=== PATIENT | female | born 2000 | race Caucasian/White ===

== ENCOUNTER 2020-12-14 21:17 | Emergency (ER) | payer OTHER ==
[~2020-12-14] VITALS: Ht 167.6 cm; Wt 96.6 kg
[2020-12-14 21:19] VITALS: BP 132/76
--- NOTE | 2020-12-14 21:19 | NUR ---
TO BED AMBULATORY
[2020-12-14 22:08] LABS: APPEARANCE,URINE SL CLOUDY (CLEAR); BILIRUBIN,URINE NEGATIVE (NEGATIVE); BLOOD, URINE NEGATIVE (NEGATIVE); COLOR,URINE YELLOW (YELLOW); LEUKOCYTE ESTERASE ,URINE 2+ (NEGATIVE); NITRITE, URINE NEGATIVE (NEGATIVE); UGLUCOSE NEGATIVE (NEGATIVE)
[2020-12-14 22:18] LABS: RBC,URINE NONE SEEN /HPF (0-5)
[2020-12-14 22:21] LABS: TRICHOMONAS,URINE None Seen /HPF (None Seen); YEAST,URINE None Seen /HPF (None Seen)
--- NOTE | 2020-12-14 22:32 | NUR ---
Dr. Nation examining patient.
[2020-12-14] MEDS ORDERED: IBUP-2213 PO (22:48)
[2020-12-14] MEDS ORDERED: CIPR500T4 PO (22:48)
--- NOTE | 2020-12-14 23:03 | NUR ---
Patient discharged with v/s stable. Written and verbal after care instructions given and explained. Patient alert, oriented and verbalized understanding of instructions. Ambulatory with steady gait. All questions addressed prior to discharge. ID band removed. Patient advised to follow up with PMD. Rx of cipro and ibuprofen given. Patient educated on indication of medication including possible reaction and side effects. Opportunity to ask questions provided and answered.
[2020-12-14 23:25] VITALS: BP 127/77
== END 2020-12-14 23:03 | disposition home or self-care (01) ==
LOC: MED 21:17
DX: R51.9 Headache, unspecified (principal); N91.2 Amenorrhea, unspecified; N39.0 Urinary tract infection, site not specified; F41.9 Anxiety disorder, unspecified; F32.9 Major depressive disorder, single episode, unspecified; Z79.899 Other long term (current) drug therapy
CPT/HCPCS: 81001; 81025; 87086; 99283

== ENCOUNTER 2022-07-19 19:38 | Emergency (ER) | payer MEDICAID, OTHER ==
[~2022-07-19] VITALS: Ht 160 cm; Wt 95.7 kg
[~2022-07-19 19:38] MED LIST: CIPR500T4 PO; IBUP-2213 PO
[2022-07-19 20:36] VITALS: BP 124/81
--- NOTE | 2022-07-19 20:41 | NUR ---
MD CANALES ASSESSING IN TRIAGE
--- NOTE | 2022-07-19 20:43 | NUR ---
PT TO LOBBY
[2022-07-19] MEDS ORDERED: PRED20TA5 PO (20:50)
[2022-07-19] MEDS ORDERED: DIPH25TA53 PO (20:50)
[2022-07-19] MEDS ORDERED: IBUP-2213 PO (20:50)
[2022-07-19 21:30] VITALS: BP 124/81
--- NOTE | 2022-07-19 21:30 | NUR ---
Patient discharged with v/s stable. Written and verbal after care instructions given and explained. Patient alert, oriented and verbalized understanding of instructions. Ambulatory with steady gait. All questions addressed prior to discharge. ID band removed. Patient advised to follow up with PMD. Rx of BENADRYL,IBUPROFEN, AND DELTASONE given. Patient educated on indication of medication including possible reaction and side effects. Opportunity to ask questions provided and answered.
== END 2022-07-19 22:03 | disposition home or self-care (01) ==
LOC: MED 19:38
DX: H00.014 Hordeolum externum left upper eyelid (principal); L50.9 Urticaria, unspecified; E11.9 Type 2 diabetes mellitus without complications; E05.90 Thyrotoxicosis, unspecified without thyrotoxic crisis or storm; Z86.69 Personal history of other diseases of the nervous system and sense organs; Z79.899 Other long term (current) drug therapy; Z79.1 Long term (current) use of non-steroidal anti-inflammatories (NSAID); Z79.2 Long term (current) use of antibiotics
CPT/HCPCS: 99283

== ENCOUNTER 2022-08-25 21:03 | Emergency (ER) | payer MEDICAID ==
[~2022-08-25] VITALS: Ht 160 cm; Wt 95.7 kg
[~2022-08-25 21:03] MED LIST changes: +DIPH25TA53 PO; +PRED20TA5 PO
[2022-08-25 21:07] VITALS: BP 124/84; PULSE 113; RESP 17; TEMP 97.8; O2SAT 97
--- NOTE | 2022-08-25 21:11 | NUR ---
TO LOBBY A/W BED AMBULATORY
[2022-08-25] MEDS ORDERED: LIDOCAINE MPF 1% 10 MG/ML VIAL INJ ONE (21:35)
--- NOTE | 2022-08-25 22:24 | NUR ---
PT TO BED #8
[2022-08-25] MEDS ORDERED: BACI-418 TP (23:13)
[2022-08-25] MEDS ORDERED: IBUP-1842 PO (23:13)
[2022-08-25] MEDS ORDERED: BACITRACIN OINT 500 UNITS/GM PKT TP ONE (23:15)
--- NOTE | 2022-08-25 23:29 | NUR ---
Patient discharged with v/s stable. Written and verbal after care instructions given and explained. Patient verbalized understanding. Ambulatory with steady gait. All questions addressed prior to discharge. Advised to follow up with PMD.
== END 2022-08-25 23:29 | disposition home or self-care (01) ==
LOC: MED 21:03
DX: S91.312A Laceration without foreign body, left foot, initial encounter (principal); Z86.69 Personal history of other diseases of the nervous system and sense organs; Z79.899 Other long term (current) drug therapy; Z79.1 Long term (current) use of non-steroidal anti-inflammatories (NSAID); Z79.2 Long term (current) use of antibiotics; W25.XXXA Contact with sharp glass, initial encounter; Y93.89 Activity, other specified; Y92.89 Other specified places as the place of occurrence of the external cause; Y99.8 Other external cause status
CPT/HCPCS: 12001; 90471; 90715; 99283; J2001